=== PATIENT | female | born 1950 | race Caucasian/White ===

== ENCOUNTER → 2017-06-29 | Outpatient (CLI) | payer OTHER ==
[~2017-06-29] VITALS: Ht 157.5 cm; Wt 61.5 kg
[~2017-06-29] MED LIST: AUGMENTIN 875875 M1 PO; CALCIUM 600 +1 EAC1 PO; MOBIC15 MG PO; MOVE FREE ULTR1 EAC1 PO; NEXIUM40 MG PO; TUMERIC PO; VITAFUSION PO
--- NOTE | ~2017-06-29 | HPC ---
[facility] [address] [place] [address] PAIN MANAGEMENT CONSULTATION Name: TONY GOMEZ [id number] Admission: 06/29/17 Attend Phys: Kushal Amador MD Discharge: Date of : 54 Report #: [id number] THIS REPORT FOR: //name// CC: Roman Amador DATE OF SERVICE: 06/29/2017 Followup visit for low back pain with radiculopathy. The patient returns to the pain clinic today with her . She had about 50% improvement following her first epidural injection that was performed on 05/25. She clearly is better. She is moving better. She can go up and down steps things that she could not do before. The pain still persists; however, at a level of 4-6/10. She would like another epidural injection. Unfortunately, her insurance company will require a preauthorization. Her pain is now at a level where I feel that she can do physical therapy and she is anxious to proceed. I have referred her to Romeo Demarco for physical therapy to begin as soon as possible. MEDICATIONS: Unchanged from previous visit. She is not using pain medication. ALLERGIES: None. PHYSICAL EXAMINATION: Pleasant 66-year-old. Blood pressure 124/83, heart rate is 80, respirations 16. BMI is 24.8. She still has some pain across her low back and positive straight leg raising persists in the right hip and groin. IMPRESSION: Lumbar radiculopathy. Pain is persistent throughout the L4-L5 distribution on the right. RECOMMENDATIONS: Repeat lumbar epidural injection under fluoroscopic guidance. We were unable to perform the procedure as noted. Her [facility] requires someone to review her case. I feel quite confident that the procedure will be approved and we plan to see her back in the pain clinic next week. We discussed the importance of home exercise in addition to her physical therapy. I gave her my recommendations for how she should perform her physical therapy and sessions were recommended for once weekly for 6 weeks. She will continue to do exercises as directed by Romeo Demarco and his team between visits. [address] [address] PAIN MANAGEMENT CONSULTATION Name: PATRICIATONY CALLAWAY [facility] [id number] Admission: 06/29/17 Attend Phys: Kushal Amador MD Discharge: Date of : 54 Report #: [id number] No medications were required at this time. I will try to keep her off of medication. By: [id number] Kushal Amador MD /nt
[2017-06-29 10:18] VITALS: BP 124/83
== END ==
LOC: PAIN 07:05
DX: M54.16 Radiculopathy, lumbar region (principal); M79.604 Pain in right leg

== ENCOUNTER → 2017-08-03 | Outpatient (CLI) | payer OTHER ==
[~2017-08-03] VITALS: Ht 157.5 cm; Wt 60.3 kg
[~2017-08-03] MED LIST changes: +APAP650 PO; +CBD OIL; +GABAPENTIN100 MG PO; +NEURONTIN 300300 M1 PO
--- NOTE | ~2017-08-03 | HPC ---
[facility] [address] [address] PAIN MANAGEMENT CONSULTATION Name: TONY GOMEZ Room #: REG [facility].#: [id number] Admission: 08/03/17 Attend Phys: Kushal Amador MD Discharge: Date of : 54 Report #: [id number] THIS REPORT FOR: //name// CC: Roman Amador DATE OF SERVICE: 08/03/2017 Followup visit for lumbar radiculopathy. We received authorizations to go forward with a lumbar epidural steroid injection for the patient who has right lumbar radiculopathy related to impingement of the L5-S1 nerve root from a likely L5-S1 small synovial cyst. She had good relief from an injection performed in May. A few weeks of pain relief, then gave way to recurring pain and she is now basically back to baseline. We have talked about other options including a surgical one, but first, we would like to perform a second injection today to see how she gets along. She has not been on any neuropathic medication and I have suggested the use of gabapentin today. [facility] pain clinic assessment shows that there is no history of rheumatoid arthritis, although she does have some lower extremity osteoarthritis on the left in the hip. She is 5 feet 2 inches, 133 pounds with a BMI of 24.3. She tries to remain active. VITAL SIGNS: Blood pressure 121/83, heart rate 90, oxygen saturation 100%. Her pain intensity on the 10-point scale is 4-5/10, worse with activity. She is not a fall risk and does not use assistance device. She is not on blood thinners. She is not hypertensive. She is not on opioids and prefers to avoid the use of them due to the risks associated with their taking including constipation and does not want to deal with the addiction crisis. She does not smoke. She drinks wine 1 glass daily. PHYSICAL EXAMINATION: Pleasant, alert and oriented. Vital signs as above. She moves from sitting to standing position, ambulates with mild antalgic features and positive straight leg raising pain, reproducing pain in the right buttock and leg consistent with MRI findings of the right synovial cyst. IMPRESSION: Low back pain with radiculopathy, right L5-S1 secondary to synovial cyst. PLAN: 1. Epidural steroid injection, right paramedian L5-S1. 2. Gabapentin 100 mg titrated to 900 mg daily. Side effects reviewed. PROCEDURE: She was taken to fluoroscopic suite for treatment and placed prone, [place] [address] PAIN MANAGEMENT CONSULTATION Name: TONY GOMEZ Room #: REG [facility] Johanna#: [id number] Admission: 08/03/17 Attend Phys: Kushal Amador MD Discharge: Date of : 54 Report #: [id number] skin prepped with ChloraPrep. Skin anesthetized over the L5-S1 interspace to the right of midline. A 20-gauge Tuohy epidural needle advanced in the epidural space with good loss of resistance technique. There was no blood or CSF aspirated. 1 mL of Omnipaque was injected demonstrating great spread. It was then followed by 3 mL of 1% lidocaine mixed with 80 mg of triamcinolone. She tolerated the procedure well and was given a prescription at discharge and followup plan for 1-2 months. <ELECTRONICALLY SIGNED> By: Kushal Amador MD 09/06/17 1640 [id number] [id number] Kushal Amador MD /nt
[2017-08-03 10:33] VITALS: BP 121/83
== END | disposition home or self-care (01) ==
LOC: PAIN 06:49
DX: M54.16 Radiculopathy, lumbar region (principal); G89.29 Other chronic pain; M71.38 Other bursal cyst, other site; Z79.899 Other long term (current) drug therapy; Z98.890 Other specified postprocedural states

== ENCOUNTER → 2017-12-14 | Outpatient (CLI) | payer OTHER, MEDICARE ==
[~2017-12-14] VITALS: Ht 157.5 cm; Wt 61.2 kg
[~2017-12-14] MED LIST changes: -APAP650 PO
--- NOTE | ~2017-12-14 | HPC ---
[facility] [place] [address] [place] [address] PAIN MANAGEMENT CONSULTATION Name: TONY GOMEZ [facility] [id number] Admission: 12/14/17 Attend Phys: Kushal Amador MD Discharge: Date of : 54 Report #: [id number] THIS REPORT FOR: //name// CC: Roman Amador DATE OF SERVICE: 12/14/2017 ADDENDUM. Straight leg raising is noted to be mildly positive on the right reproducing some symptoms in the L4-L5 distribution. I have reviewed Livier Ram APN note from 10/16/2017. Livier noted from her MRI listhesis of the L4-L5 level with right-sided joint enhancement on the right and an L5-S1 cyst that is in location. There was no overt nerve compression noted. IMPRESSION: 1. Chronic low back pain with radiculopathy. Lumbar spondylosis and spondylolisthesis, L4-L5. 2. Osteoarthritis, bilateral, worse on the left with "[id number]" osteoarthritis noted by the patient. X-rays have not been reviewed. RECOMMENDATION: 1. Nonsteroidal anti-inflammatory drug rotation. Discontinue Meloxicam, begin diclofenac 50 mg b.i.d. or 100 mg once a day. GI, renal and cardiac side effects reviewed. Continue on all other medicines including Nexium and Caltrate. 2. Begin physical therapy. She has chosen [facility] having attended some of their programs and is close to home. I have given orders for that therapy. 3. Return to pain clinic for epidural steroid injection, which may help facilitate therapy. I will perform injections as they benefit her, no more than 3-4 injections a year due to a cortisone potential side effects. Followup visit planned in 1 week for epidural steroid injection. By: 1023 1237 Kushal Amador MD /nt
--- NOTE | ~2017-12-14 | HPC ---
[facility] [address] [address] PAIN MANAGEMENT CONSULTATION Name: TONY GOMEZ Room #: REG [facility].#: [id number] Admission: 12/14/17 Attend Phys: Kushal Amador MD Discharge: Date of : 54 Report #: [id number] THIS REPORT FOR: //name// CC: Christine Amador DATE OF SERVICE: 12/14/2017 DATE OF REGISTRATION: 12/14/2017 Followup visit for low back pain with anterolisthesis and right lumbar radiculopathy, L4-L5. The patient returns to pain clinic today in followup to discuss the plan for management of her back and leg pain. She has received an epidural steroid injection in the past, receiving about 1 month of improvement. Pain then returned to baseline. She scores her pain at a fairly low level at 3/10. What really bothers her is that she has weakness in her right leg. Most of her strength is in her left, but this is troublesome also because she has an osteoarthritic left knee, which will eventually need to be replaced. She has seen Dr. Oswald and he has told her that in the future when the pain is severe enough that she can proceed. She has been told that it is [id number]. She is not routinely exercising but has plans to begin physical therapy at [facility], which is close to her home. We had a lengthy discussion today about exercise and its benefits. We talked about the importance of regular exercise program and I think before she goes to curves or off to another gym that it would be best for her to try and establish a regimen with the physical therapist will be useful. She is not interested in taking much medication for pain. She had been on gabapentin, but it caused some edema. She started CBD oil. We will wait to see the results of that. She continues on Meloxicam, which she is taking chronically at 15 mg a day with few side effects, may be nonsteroidal anti-inflammatory rotation. She is not a fall risk, but does definitely have weakness in that right leg. She is on no blood thinners. No history of hypertension. I do not provide opioids for her. PHYSICAL EXAMINATION: She is 5 feet 2 inches, 135 pounds. BMI is 24.7. Blood pressure is 116/81, heart rate 88, respirations 14, O2 sats 100%. She is able to move independently from sitting to standing without using her arms in the [address] [address] PAIN MANAGEMENT CONSULTATION Name: TONY GOMEZ Room #: REG [facility].#: [id number] Admission: 12/14/17 Attend Phys: Kushal Amador MD Discharge: Date of : 54 Report #: [id number] chair. Does not appear to be any subjective or objective muscle weakness, right to left. All muscle groups grade out at 4/5 in the lower extremities with symmetry. Sensation is intact. Deep tendon reflexes are normal. Spinal alignment is normal. There does not appear to be any rotational component of her scoliosis. Flexion and extension of the lumbar spine are performed without discomfort. Mild tenderness across the lumbosacral spine. By: 1020 1314 Kushal Amador MD /nt
[2017-12-14 09:49] VITALS: BP 116/81
== END ==
LOC: PAIN 06:49
DX: M47.26 Other spondylosis with radiculopathy, lumbar region (principal); M43.16 Spondylolisthesis, lumbar region; M17.12 Unilateral primary osteoarthritis, left knee

== ENCOUNTER → 2018-01-01 | Outpatient (CLI) | payer OTHER, MEDICARE ==
[~2018-01-01] VITALS: Ht 157.5 cm; Wt 60.7 kg
[~2018-01-01] MED LIST changes: +APAP650 PO
--- NOTE | ~2018-01-01 | H ---
[facility] [address] [address] [place] [address] HISTORY AND PHYSICAL Name: PATRICIATONY GALLARDOAN Room #: REG [facility].#: [id number] Admission: 01/01/18 Attend Phys: Kushal Amador MD Discharge: Date of : 54 Report #: [id number] THIS REPORT FOR: //name// CC: Roman Amador DATE OF SERVICE: 01/01/2018 Followup visit for lumbar radiculopathy. HISTORY OF PRESENT ILLNESS: The patient was last seen in July. She had excellent relief with a right-sided L5-S1 epidural steroid injection. She has a grade 1 anterolisthesis with bilateral moderate facet arthropathy along with mild disk bulging. She has stable mild central stenosis and mild bilateral neural foraminal stenosis at that level. At L5-S1, there is associated superimposed disk protrusion. Based upon her favorable response on the right side, we will inject her once again there. Her pain oftentimes goes from the right to the left. PQRS review shows a healthy appearing 67-year-old She is 5 feet 2 inches, BMI of 24.7, blood pressure 116/81, heart rate 88. Pain intensity 3. She moves from sitting to standing position, walks without antalgic features. She has pain in the right hip that radiates down the lateral aspect of the right leg. She has some mild weakness there. The patient does not smoke or use alcohol. IMPRESSION: Low back pain with radiculopathy secondary to L4-L5 anterolisthesis with neural foraminal narrowing. PROCEDURE: Right L5-S1 epidural steroid injection under fluoroscopic guidance. She was taken to fluoroscopic suite, placed prone, skin prepped with ChloraPrep. Skin anesthetized over the L5-S1 neural foramen. A 20-gauge Tuohy epidural needle advanced into the epidural space with loss of resistance. There was no blood or CSF aspirated. 1 mL of Omnipaque injected. Good spread of dye observed, followed by 3 mL of 0.5% lidocaine mixed with 80 mg of triamcinolone. She tolerated the procedure well and was observed for 45 minutes and discharged. Followup visit scheduled for the future on an as needed basis. No medications were ordered for the patient. By: 1015 1034 Kushal Amador MD /nt
[2018-01-01 09:25] VITALS: BP 112/82
== END | disposition home or self-care (01) ==
LOC: PAIN 06:37
DX: M48.061 Spinal stenosis, lumbar region without neurogenic claudication (principal); M43.16 Spondylolisthesis, lumbar region; M54.16 Radiculopathy, lumbar region; G89.29 Other chronic pain; Z98.890 Other specified postprocedural states

== ENCOUNTER → 2018-06-28 | Outpatient (CLI) | payer OTHER, MEDICARE ==
[~2018-06-28] VITALS: Ht 157.5 cm; Wt 59.9 kg
[~2018-06-28] MED LIST changes: +DICLOFENAC SOD50 MG PO; +NABUMETONE 500500 M1 PO
--- NOTE | ~2018-06-28 | HPC ---
[facility] [address] [place] [address] PAIN MANAGEMENT CONSULTATION Name: TONY GOMEZ Room #: REG [facility].#: [id number] Admission: 06/28/18 Attend Phys: Kushal Amador MD Discharge: Date of : 54 Report #: [id number] THIS REPORT FOR: //name// CC: [facility] Kushal Amador DATE OF SERVICE: 06/28/2018 CHIEF COMPLAINT: Lumbar pain with radiation down the right leg, L5-S1 radiculopathy. The patient returns to pain clinic today for an epidural injection in anticipation of the . She has been fine responder, nearly always receiving good relief. She has an arthritic left knee and Dr. Oswald will be performing a total knee replacement in August. The pain in her knee is also a troublesome and has been affecting her over the course of the last several months. PQRS REVIEW: 1. She has definite osteoarthritis, particularly in the knee where the left knee will be replaced soon. 2. BMI is 24.1. 3. Blood pressure 123/79, heart rate 80. 4. Pain intensity 3 increasing to a 7/10 with weightbearing into the low back radiating into the right leg. 5. Fall risk: No. 6. The patient is not on blood thinner. 7. No history of hypertension. 8. No use of opioid medication. 9. The patient denies tobacco and alcohol. PHYSICAL EXAMINATION: Demonstrates positive straight leg raising discomfort on the right following an L5-S1 distribution. Tenderness and slight swelling along the medial aspect of the left knee. IMPRESSION: 1. Low back pain with radiculopathy. Anterolisthesis L4-L5 and synovial cyst on the right at L5-S1. 2. Osteoarthritis, left knee. RECOMMENDATIONS: 1. I have suggested pretherapy to [facility] for evaluate and treatment of anterolisthesis, low back pain with radiculopathy and also to help [address] [address] PAIN MANAGEMENT CONSULTATION Name: TONY GOMEZ Room #: REG [facility]#: [id number] Admission: 06/28/18 Attend Phys: Kushal Amador MD Discharge: Date of : 54 Report #: [id number] with strengthening prior to her knee surgery. I think she needs good therapy for exercise instruction regarding her low back and leg pain. Her program should focus on strength, flexibility and aerobics. 2. Repeat lumbar epidural steroid injection L5-S1 to the right paramedian approach. This should help with both the anterolisthesis as well as the synovial cyst. PROCEDURE: L5-S1 epidural steroid injection. Skin was prepped with ChloraPrep. Skin anesthetized and a 20-gauge Tuohy epidural needle advanced into the epidural space with loss of resistance technique. There was no blood or CSF aspirated. The needle was at L5-S1 to the right of midline. After negative aspiration, I injected 0.5 mL of Omnipaque and good spread of dye was observed into the epidural space, this was followed by 3 mL of 0.5% lidocaine mixed with 80 mg of triamcinolone. She tolerated the procedure well and was observed for 45 minutes and discharged. Followup visit planned in the pain clinic on an as needed basis and I would be glad to see her following her knee surgery. By: 1528 1943 Kushal Amador MD /nt
[2018-06-28 09:27] VITALS: BP 123/79
== END | disposition home or self-care (01) ==
LOC: PAIN 05-21 13:46
DX: M54.16 Radiculopathy, lumbar region (principal); M43.16 Spondylolisthesis, lumbar region; M71.38 Other bursal cyst, other site; M17.12 Unilateral primary osteoarthritis, left knee; Z96.652 Presence of left artificial knee joint; Z79.899 Other long term (current) drug therapy

== ENCOUNTER → 2018-12-31 | Outpatient (CLI) | payer OTHER, MEDICARE ==
[~2018-12-31] VITALS: Ht 157.5 cm; Wt 57.8 kg
[2018-12-31 10:29] VITALS: BP 121/69
--- NOTE | 2018-12-31 10:45 | NUR ---
Pain Clinic Assessment: 1. History of Osteoarthritis: Left Lower Extremity History of Rheumatoid Arthritis: Not Applicable 2. Height: 5 ft. 2 in. 157.5 cm. Weight: 127.4 lb. oz. 57.788 kg. Patient's BMI: 23.3 3. Vital Signs: BP: 121/69 Pulse: 78 Resp: 14 Temp: 02 Sat: 98 ECG Mon: 4. Pain Intensity: 1 5. Fall Risk: Dizziness: N Needs help standing or walking: N Fallen in the last 3 months: N Fall risk comments: 6. Patient on Blood Thinner: None 7. History of Hypertension: N 8. Opioid Therapy greater than 6 weeks: N Opiate Contract Signed: 9. Risk Assessment Tool Provided: jenny 10. Functional Assessment Tool: 11. Recreational Drug Use: Never Drug Type: Tobacco Use: Never Smoker Tobacco Type: Amount or Packs/day: How Many Years: Alcohol Use: Yes Frequency: Quant:
--- NOTE | 2019-01-08 17:25 | HPC ---
[facility] [place] [address] [place] [address] PAIN MANAGEMENT CONSULTATION Name: TONY GOMEZ [facility] [id number] Admission: 12/31/18 ������������������ Attend Phys: Kushal Amador MD Discharge: ������������������ Date of : 54 Report #: [id number] THIS REPORT FOR: //name// CC: Roman Amador DATE OF SERVICE: 12/31/2018 HISTORY OF PRESENT ILLNESS: Followup visit for chronic low back pain with radiculopathy secondary to anterolisthesis, L5-S1, and postoperative pain status post left total knee replacement. The patient returns to pain clinic today in followup for recurring pain. I have seen her in the past for low back pain secondary to an anterolisthesis at L4-L5 causing neural foraminal narrowing. She has responded very nicely to epidural injections. She now has 2 pains. The first pain generator is her chronic pain that radiates into the right leg and is consistent with radiculopathy. The second pain is intermittent and is associated with her knee replacement. She was recovering nicely after her replacement, undergoing therapy. She was in the midst of a therapy episode when she had an excruciating episode of pain 04/18. Burning was noted and she had difficulty straightening her leg. It took nearly a week to recover from that episode. It created kinesiophobia. She is fearful of moving now, although she is continuing to do some of her exercise. In the past, she has taken tramadol but because of all of the attention with the opioid crisis, she has been very reluctant to take tramadol even for severe pain episodes. We discussed this. She has been taking meloxicam 15 mg daily as well as Nexium. We discussed side effects, GI, cardiac and renal, of her nonsteroidal anti-inflammatory drugs. She will continue to use those cautiously. She is not doing formal PT at this time, but she is walking some and is using a stationary bike. It is a recumbent bike. I discussed with her following her treatment today that she may do a bit better in a traditional bike when she is in flexion. It all depends on the mechanics and how this might impinge upon exiting nerve root at the foramen. PQRS: 1. She does have a history of osteoarthritis, having just undergone a left knee replacement. 2. 5 feet 2 inches, 127 pounds, BMI 23.3. 3. Vital signs: Blood pressure 121/69, heart rate 78, respirations 14, O2 sat 98. 4. Pain intensity today is 07/19. [address] [address] PAIN MANAGEMENT CONSULTATION Name: TONY GOMEZ Room #: REG [facility].#: [id number] Admission: 12/31/18 ������������������ Attend Phys: Kushal Amador MD Discharge: ������������������ Date of : 54 Report #: [id number] 5. She is not a fall risk nor has she fallen in the last 3 months. 6. She is on no blood thinners. 7. No history of hypertension. 8. She is not on an opioid treatment contract nor is she currently receiving medications from our office. Her opioid risk assessment tool, however, has been completed and she scored 0. Her functional assessment tool currently is 34/70. She denies recreational drug use and tobacco use, but drinks alcohol in a social setting. PHYSICAL EXAMINATION: She is pleasant, alert and oriented. She walks with a mildly antalgic gait owing to her left knee and also to her mild radicular pain. There is straight leg raising pain now bilaterally. She has some radiating pain through her left leg all the way into the foot, which may be consistent with some now crossover left lumbar radicular pain. IMPRESSION: 1. Osteoarthritis, status post left knee replacement. 2. Anterolisthesis, L4 on L5, with bilateral radiculopathy. RECOMMENDATIONS: I think an epidural steroid injection will be helpful. We can reduce pain associated with her radiculopathy and we may help with some hypersensitization as well that may be mediated through the nerve roots associated with her knee replacement. This has been shown to be helpful in providing relief from a variety of pain sources in the postoperative period, perhaps by sympathetic mechanisms. At any rate, the injection might be helpful to help her get back into therapy. I have recommended that she consider pool walking, which has been a good way to establish a normal gait without weightbearing and then she can cross this over into a weightbearing exercise as well. PROCEDURE: Epidural steroid injection under fluoroscopic guidance. She was taken to fluoroscopic suite, placed prone, skin prepped with ChloraPrep. Skin anesthetized over the L5-S1 interspace to the left of midline. A 20-gauge Tuohy epidural needle advanced in the epidural space using loss of resistance. No blood or CSF aspirated. A 1 mL of Omnipaque injected. Good spread of dye observed into the epidural space followed by 3 mL of 0.5% lidocaine with 80 mg of triamcinolone. She tolerated the procedure well. Pain score was 0 at discharge and a followup visit planned in 1 month. No medications were ordered. ��������������������������������������������� <ELECTRONICALLY SIGNED> ���������������������������������������� By: Kushal Amador MD ��������������������������������������������� 01/08/19 1725 1158 [id number] Kushal Amador MD /carrol
== END | disposition home or self-care (01) ==
LOC: PAIN 06:46
DX: M54.16 Radiculopathy, lumbar region (principal); M43.16 Spondylolisthesis, lumbar region; M19.90 Unspecified osteoarthritis, unspecified site; G89.29 Other chronic pain; M99.73 Connective tissue and disc stenosis of intervertebral foramina of lumbar region; Z96.652 Presence of left artificial knee joint; Z79.899 Other long term (current) drug therapy

== ENCOUNTER → 2019-01-21 | Outpatient (CLI) | payer OTHER, MEDICARE ==
[~2019-01-21] VITALS: Ht 165.1 cm; Wt 58.9 kg
[~2019-01-21] MED LIST changes: +GABAPENTIN 100100 MG PO
[2019-01-21 11:14] VITALS: BP 115/78
--- NOTE | 2019-01-21 11:29 | NUR ---
Pain Clinic Assessment: 1. History of Osteoarthritis: Left Lower Extremity History of Rheumatoid Arthritis: Not Applicable 2. Height: 5 ft. 5 in. 165.1 cm. Weight: 129.8 lb. oz. 58.877 kg. Patient's BMI: 21.6 3. Vital Signs: BP: 115/78 Pulse: 78 Resp: 14 Temp: 02 Sat: 100 ECG Mon: 4. Pain Intensity: 4 5. Fall Risk: Dizziness: N Needs help standing or walking: N Fallen in the last 3 months: N Fall risk comments: 6. Patient on Blood Thinner: None 7. History of Hypertension: N 8. Opioid Therapy greater than 6 weeks: N Opiate Contract Signed: 9. Risk Assessment Tool Provided: jenny 10. Functional Assessment Tool: 11. Recreational Drug Use: Never Drug Type: Tobacco Use: Never Smoker Tobacco Type: Amount or Packs/day: How Many Years: Alcohol Use: Yes Frequency: Daily Quant: 1
--- NOTE | 2019-01-23 15:28 | HPC ---
[facility] [address] [place] [address] PAIN MANAGEMENT CONSULTATION Name: TONY GOMEZ Room #: REG [facility]..#: [id number] Admission: 01/21/19 ������������������ Attend Phys: Renee Hankins Discharge: ������������������ Date of : 54 Report #: [id number] THIS REPORT FOR: //name// CC: Renee Smith DATE OF SERVICE: 01/21/2019 CHIEF COMPLAINT: Chronic low back pain with radiculopathy secondary to anterolisthesis. HISTORY OF PRESENT ILLNESS: This is a very pleasant 68-year-old female who returns to the pain clinic today to discuss options. She tells me that she had an epidural steroid injection about 3 weeks ago. She tells me that she was 80% better for a little over a week but does not feel that it is helpful any longer. She tells me normally she gets much longer relief and was disappointed in the results. She tells me her back and right leg as well as her left leg is hurting to the knee. She tells me it is a constant, burning, numbness pain, rating her pain score today a 4/10. It is worse with getting out of the car, resting and standing. She tells me that rest, cold, CBD oil and stretching are helpful, but she tells me that at nighttime her left leg has significant burning that does wake her up. She was wondering if there were any options that she could try in the form of medications. She is getting ready to go on vacation again next week and feels that her pain is too great to travel and enjoy her time away right now. ALLERGIES: No known drug allergies. CURRENT LIST OF MEDICATIONS: Meloxicam 15 mg daily, Tylenol Arthritis daily, CBD oil, Move Free Ultra tablets, calcium, turmeric, Betafusin and Nexium. PQRS: 1. She has osteoarthritis in her lumbar spine as well as in her knee. 2. Denies any rheumatoid arthritis. 3. Height is 5 feet 5 inches, weight is 129 and BMI is 21. 4. VITAL SIGNS: Blood signs 115/78, pulse is 78, respirations 14 and oxygen sat is 100. 5. Pain score is 4/10. 6. Denies dizziness. Does not need help walking or standing. Has not fallen in the last 3 months. 7. She is not on any blood thinners and does not take medicine for hypertension. 8. She does not take opioids. Her risk assessment tool is low. Functional assessment is 34/70. 9. Recreational drug use, she denies. She is not a smoker and [place] [address] PAIN MANAGEMENT CONSULTATION Name: TONY GOMEZ Room #: REG [facility] Johanna#: [id number] Admission: 01/21/19 ������������������ Attend Phys: Renee Hankins Discharge: ������������������ Date of : 54 Report #: [id number] PHYSICAL EXAMINATION: GENERAL: This is a pleasant and alert 68-year-old female who appears her stated age. Placing her current pain score at 4/10. HEENT: Normocephalic and atraumatic. Extraocular eye muscles are intact. Mucous membranes are moist. MUSCULOSKELETAL: The patient walks with a mildly antalgic gait. She has radicular symptoms, worse on the left leg that radiates to the knee. There is straight leg raising pain bilaterally. The patient has burning pain noted and has difficulty straightening her left leg. She feels that lower extremity strength judged to be 5/5 bilaterally. IMPRESSION: 1. Low back pain with radiculopathy. 2. Anterolisthesis, L4 on L5 with bilateral radiculopathy. RECOMMENDATIONS: 1. I think that epidural steroid injection would be very beneficial to help reduce some of the pain associated with her radiculopathy and her burning sensation that she experiences in her left leg, especially. Her last injection was less than 3 weeks ago that she did get beneficial improvement, though it was short-lived. I explained to the patient that sometimes it does take more than one injection to help reduce some of her inflammation and pain. The patient is agreeable to try another lumbar epidural steroid injection. Dr. Kushal Amador did perform this at the L5-S1 interspace. We will make an appointment for repeat in a couple of weeks. 2. The patient had trialed gabapentin in the past. She did notice some edema in her legs. So, she stopped that medication, but she would like to possibly try that medication again. She feels it could have been just her traveling that was causing her edema. I explained to her the lowest most effective dose. We will restart gabapentin 100 mg at bedtime. The patient to take this for 5 nights and then increase to 200 mg at bedtime again for 5 nights, then the goal dose would be 300 mg at bedtime but if the patient's pain and burning does decrease, she is to stop at the lowest most effective dose. She verbalizes understanding. 3. Appointment made for later on this month after the patient returns from her trip to [place] and we will repeat that epidural steroid injection by Dr. Kushal Amador. 4. Patient was seen in collaboration with Dr Amador who did see the patient as well today. ��������������������������������������������� <ELECTRONICALLY SIGNED> ���������������������������������������� By: Renee Hankins ��������������������������������������������� 01/23/19 1528 [id number] 0021 Renee agustin
== END ==
LOC: PAIN 10:55
DX: M54.16 Radiculopathy, lumbar region (principal); M43.16 Spondylolisthesis, lumbar region

== ENCOUNTER → 2019-02-04 | Outpatient (CLI) | payer OTHER, MEDICARE ==
[~2019-02-04] VITALS: Ht 165.1 cm; Wt 58.4 kg
[~2019-02-04] MED LIST changes: +CYMBALTA20 MG PO
--- NOTE | ~2019-02-04 | HPC ---
[facility] [place] [address] PAIN MANAGEMENT CONSULTATION Name: TONY GOMEZ Room #: REG [facility].#: [id number] Admission: 02/04/19 ������������������ Attend Phys: Kushal Amador MD Discharge: ������������������ Date of : 54 Report #: [id number] THIS REPORT FOR: //name// CC: Roman Amador DATE OF SERVICE: 02/04/2019 Followup visit for chronic low back pain with radiculopathy secondary to anterolisthesis. The patient is here today for an epidural injection. She was last seen on 01/25/2019. Renee Hankins, clinical nurse specialist saw her and reviewed with her her medications and medication use. An appointment was made for an epidural based upon her excellent response in the past. Most recent epidural was performed on 12/31/2018. Pain today is not quite as good as she is seen with previous injection, so we elected to repeat the injection. PQRS review is unchanged from 01/21/2019. PHYSICAL EXAMINATION: A pleasant 68-year-old female who appears younger than her stated age. Her blood pressure 103/70, heart rate 80, respirations 14. She moves from sitting to standing position, ambulates with mild antalgic features. She has tenderness across the low back and straight leg raising discomfort that radiates into the left leg. She has tenderness around the left knee. She has more consistent radicular symptoms radiating into the right leg. Strength is 5/5 bilaterally throughout the lower extremities. Sensation is intact. Deep tendon reflexes are diminished bilaterally at knees and ankles. IMPRESSION: Chronic and recurring lumbar radiculopathy, bilateral secondary to anterolisthesis of L4 on L5. RECOMMENDATION: Epidural steroid injection under fluoroscopic guidance. PROCEDURE: She was taken to fluoroscopic suite, placed prone, skin prepped with ChloraPrep. Skin anesthetized over the L4-L5 interspace. A 20-gauge Tuohy epidural needle was advanced into the epidural space with loss of resistance technique. No blood nor CSF was aspirated. A 1 mL of Omnipaque was injected. Good spread of dye observed in the epidural space followed by 3 mL of 0.5% lidocaine mixed with 80 mg of triamcinolone. She tolerated the procedure well and was observed for 45 minutes and discharged. [address] [address] PAIN MANAGEMENT CONSULTATION Name: TONY GOMEZ [id number] Admission: 02/04/19 ������������������ Attend Phys: Kushal Amador MD Discharge: ������������������ Date of : 54 Report #: [id number] Followup visit planned as needed. ��������������������������������������������� ���������������������������������������� By: ��������������������������������������������� 1834 1355 Kushal Amador MD /nt
[2019-02-04 14:29] VITALS: BP 103/70
--- NOTE | 2019-02-04 14:41 | NUR ---
Pain Clinic Assessment: 1. History of Osteoarthritis: Left Lower Extremity History of Rheumatoid Arthritis: Not Applicable 2. Height: 5 ft. 5 in. 165.1 cm. Weight: 128.8 lb. oz. 58.423 kg. Patient's BMI: 21.4 3. Vital Signs: BP: 103/70 Pulse: 80 Resp: 14 Temp: 02 Sat: 100 ECG Mon: 4. Pain Intensity: 2 5. Fall Risk: Dizziness: Y Needs help standing or walking: N Fallen in the last 3 months: N Fall risk comments: 6. Patient on Blood Thinner: None 7. History of Hypertension: N 8. Opioid Therapy greater than 6 weeks: N Opiate Contract Signed: 9. Risk Assessment Tool Provided: o-low 10. Functional Assessment Tool: 11. Recreational Drug Use: Never Drug Type: Tobacco Use: Never Smoker Tobacco Type: Amount or Packs/day: How Many Years: Alcohol Use: Yes Frequency: Daily Quant: 1-2
== END | disposition home or self-care (01) ==
LOC: PAIN 07:00
DX: M54.16 Radiculopathy, lumbar region (principal); M43.16 Spondylolisthesis, lumbar region; G89.29 Other chronic pain; Z98.890 Other specified postprocedural states; Z79.899 Other long term (current) drug therapy

== ENCOUNTER → 2019-09-02 | Outpatient (CLI) | payer OTHER, MEDICARE ==
[~2019-09-02] VITALS: Ht 165.1 cm; Wt 62.7 kg
[~2019-09-02] MED LIST changes: +MAGNESIUM CITR125 MG PO
[2019-09-02 13:15] VITALS: BP 125/82
--- NOTE | 2019-09-02 13:33 | NUR ---
Pain Clinic Assessment: 1. History of Osteoarthritis: Left Lower Extremity History of Rheumatoid Arthritis: Not Applicable 2. Height: 5 ft. 5 in. 165.1 cm. Weight: 138.2 lb. oz. 62.687 kg. Patient's BMI: 23.0 3. Vital Signs: BP: 125/82 Pulse: 85 Resp: 14 Temp: 02 Sat: 97 ECG Mon: 4. Pain Intensity: 7 5. Fall Risk: Dizziness: N Needs help standing or walking: N Fallen in the last 3 months: N Fall risk comments: 6. Patient on Blood Thinner: None 7. History of Hypertension: N 8. Opioid Therapy greater than 6 weeks: N Opiate Contract Signed: 9. Risk Assessment Tool Provided: jenny 10. Functional Assessment Tool: 11. Recreational Drug Use: Never Drug Type: Tobacco Use: Never Smoker Tobacco Type: Amount or Packs/day: How Many Years: Alcohol Use: Yes Frequency: Daily Quant: 1
--- NOTE | 2019-09-05 14:31 | HPC ---
[facility] [place] [address] PAIN MANAGEMENT CONSULTATION Name: TONY GOMEZ Room #: REG [facility]..#: [id number] Admission: 09/02/19 Attend Phys: Kushal Amador MD Discharge: Date of : 54 Report #: [id number] THIS REPORT FOR: cc: Roman Smith MD, Eric K. MD Morgan,Kushal Deal MD ~ THIS REPORT FOR: //name// CC: Roman Amador DATE OF SERVICE: 09/02/2019 Followup visit for chronic low back pain with anterolisthesis. Pain in the left knee, status post partial knee replacement. The patient returns today with her to discuss her 2 primary pain generators. I do think that she has more than 1 pain generator, clearly her knee hurts after her surgery and she saw Dr. Oswald, who has given her the option of proceeding on with a revision to total knee replacement. She is understandably a bit leery of that surgery, but it may be necessary. She has a lot of tenderness around the knee and has difficulty with activation of the knee when she goes up and down steps. It radiates up into the anterior thigh and is consistent with knee arthropathy. I do also believe she has a radicular component that radiates from her L4-L5 anterolisthesis and she has responded to epidural injections. What is interesting that the epidural injection also has helped her knee somewhat. We found this and it may be due to central hypersensitization in the interruption of pain pathways. Whatever the mechanism, it is not something that is unusual for people see relief of distal pathology following an epidural injection. Epidural interruption seems to be helpful for a variety of pains without being diagnostic. PQRS REVIEW: Remains unchanged from prior visits. Osteoarthritis, most prominently left knee. BMI is stable at 23, vital signs stable, 125/82, heart rate 85, pain intensity is 7/10 from both sources together. She denies blood thinning medications, antihypertensive or opioids. Functional assessment score 34/70. She does not smoke, uses alcohol cautiously and occasionally in social settings, no more than one drink. IMPRESSION: 1. Chronic recurring lumbar radiculopathy secondary to anterolisthesis L4 on L5. 2. Painful left knee, status post partial knee replacement. Follow with [address] [address] PAIN MANAGEMENT CONSULTATION Name: TONY GOMEZ Room #: REG [facility].#: [id number] Admission: 09/02/19 Attend Phys: Kushal Amador MD Discharge: Date of : 54 Report #: [id number] Salin for further definitive treatment. PROCEDURE TODAY: Lumbar epidural injection under fluoroscopic guidance. After informed consent, she was taken to fluoroscopic suite, placed prone, skin prepped with ChloraPrep. Skin was anesthetized over the L4-L5 interspace to the right of midline. A 20-gauge Tuohy epidural needle advanced in the epidural space with loss of resistance technique. There was no blood or CSF aspirated. A 1 mL of Omnipaque was injected, followed then by 3 mL of 0.5% lidocaine mixed with 80 mg triamcinolone. She tolerated the procedure well. She was observed for 45 minutes and discharged. Follow up as needed. No medications were ordered for her today. <ELECTRONICALLY SIGNED> By: Kushal Amador MD 09/05/19 1431 1727 0021 Kushal Amador MD /nt
== END | disposition home or self-care (01) ==
LOC: PAIN 06:43
DX: M54.16 Radiculopathy, lumbar region (principal); G89.29 Other chronic pain; M43.16 Spondylolisthesis, lumbar region; M25.562 Pain in left knee; Z96.652 Presence of left artificial knee joint; Z98.890 Other specified postprocedural states; Z79.899 Other long term (current) drug therapy